=== PATIENT | female | born 1945 | race Caucasian/White ===

== ENCOUNTER 2018-06-04 21:39 | Emergency (ER) | payer OTHER ==
[~2018-06-04] VITALS: Ht 152.4 cm; Wt 81.6 kg
[2018-06-04] MEDS ORDERED: NIFEDIPINE ER60 M1 (22:02)
== END 2018-06-04 23:55 | disposition home or self-care (01) ==
LOC: ER 21:39
DX: J11.1 Influenza due to unidentified influenza virus with other respiratory manifestations (principal); J06.9 Acute upper respiratory infection, unspecified